=== PATIENT | male | born 1985 | race African-American/Black ===

== ENCOUNTER 2024-06-14 19:19 | Inpatient (IN) | payer BC ==
[~2024-06-14] VITALS: Ht 167.6 cm; Wt 56.7 kg
[2024-06-14] MEDS ORDERED: ONDANSETRON HCL/PF 4 MG/2 ML VIAL ONE (20:09)
[2024-06-14] MEDS: ONDANSETRON HCL/PF 4 MG/2 ML VIAL IVP ONE (20:16)
[2024-06-14] MEDS: IV NS 0.9% 500 ML BAG IV ONE (20:18)
[2024-06-14 20:26] LABS: BASOPHILS # (AUTO) 0.1 K/uL (0.0-0.2); BASOPHILS % (AUTO) 0.4 % (0.0-2.0); EOSINOPHILS % (AUTO) 0.1 % (0.0-6.0); HEMATOCRIT 49 % (39-51); HEMOGLOBIN 16.5 g/dL (13.5-17.5); LYMPHOCYTES % (AUTO) 9.3 % (20.0-44.0); MEAN CORPUSCULAR HEMOGLOBIN 30 PG (26.0-33.0); MEAN CORPUSCULAR HGB CONC 34 g/dl (31.0-36.0); MEAN CORPUSCULAR VOLUME 88 fL (80-96); MONOCYTES # (AUTO) 1.5 K/uL (0.1-1.30); MONOCYTES % (AUTO) 6.7 % (2.0-12.0); NEUTROPHILS # (AUTO) 18.5 K/uL (1.8-8.9); NEUTROPHILS % (AUTO) 83.5 % (43.0-81.0); PLATELET COUNT (AUTO) 289 K/uL (150-450); RED BLOOD CELL COUNT(AUTO) 5.56 MIL/uL (4.5-6.0); RED CELL DISTRIBUTION WIDTH 13.7 % (11.5-15.0); WHITE BLOOD COUNT (AUTO) 22.1 K/uL (4.3-11.0)
[2024-06-14 20:31] LABS: CALCIUM, SERUM 10.7 mg/dL (8.5-10.1); CREATININE 1.4 mg/dL (0.6-1.3); POTASSIUM 4.2 mmol/L (3.5-5.1)
[2024-06-14 20:37] LABS: ALBUMIN 4.8 g/dL (3.4-5.0); BILIRUBIN,DIRECT 0.2 mg/dL (0.0-0.2); BILIRUBIN,TOTAL 1.5 mg/dL (0.2-1.0); TOTAL PROTEIN, SERUM 8.7 g/dL (6.4-8.2)
[2024-06-14] MEDS ORDERED: MORPHINE SULFATE INJ 4 MG/ML DISP.SYRIN ONE ×2 (20:45→22:41)
[2024-06-14] MEDS: MORPHINE SULFATE INJ 2 MG/ML DISP.SYRIN IV ONE ×2 (20:48→22:44)
[2024-06-14] MEDS ORDERED: IOHEXOL-300 100 ML VIAL IV ONE (21:24)
[2024-06-14] MEDS ORDERED: IV NS 0.9% 250 ML IV ONE (21:25)
[2024-06-14 21:32] LABS: LACTIC ACID 3.5 mmol/L (0.4-2.0)
[2024-06-14] MEDS: IV NS 0.9% 1,000 ML BAG IV ONE (21:56)
[2024-06-14] MEDS ORDERED: PIPERACI/TAZO 3.375GM/D5W 50ML PB IV ONE (21:59)
[2024-06-14] MEDS: PIPERACILLIN /TAZOBACTAM 3.375 G in IV D5W 50 ML IV ONE (22:00)
[2024-06-14] MEDS ORDERED: diphenhydrAMINE HCL 50 MG/ML VIAL ONE (22:27)
[2024-06-14] MEDS ORDERED: METOCLOPRAMIDE HCL 10 MG/2 ML VIAL ONE (22:27)
[2024-06-14] MEDS: diphenhydrAMINE HCL 50 MG/ML VIAL IV ONE (22:30)
[2024-06-14] MEDS: METOCLOPRAMIDE HCL 10 MG/2 ML VIAL IV ONE (22:33)
[2024-06-14 22:44] LABS: MONOTEST NEGATIVE (NEGATIVE)
[2024-06-14] MEDS ORDERED: Z GUARD REMEDY 4 OZ OINT TP PRN (23:00)
[2024-06-14 23:06] LABS: APPEARANCE,URINE CLEAR (CLEAR); BILIRUBIN,URINE NEGATIVE (NEGATIVE); BLOOD, URINE NEGATIVE Ery/uL (NEGATIVE); COLOR,URINE YELLOW (YELLOW); KETONES,URINE 1+ mg/dL (NEGATIVE); LEUKOCYTE ESTERASE ,URINE NEGATIVE (NEGATIVE); NITRITE, URINE NEGATIVE (NEGATIVE); PROTEIN,URINE NEGATIVE (NEGATIVE); UGLUCOSE NEGATIVE (NEGATIVE); UROBILINOGEN,URINE 0.2 EU/dL (0.2)
[2024-06-14 23:13] LABS: ADD URINE CULTURE NO; BACTERIA,URINE Rare /HPF (None Seen); RBC,URINE 0-2 /HPF (0-2); SQUAMOUS EPITHELIAL CELL,UR Few /HPF (None Seen); WBC,URINE 0-2 /HPF (0-3)
[2024-06-14 23:15] VITALS: BP 149/100; TEMP 98.1; O2SAT 100
[2024-06-14] MEDS: IV NS 0.9% 1,000 ML IV PRN (23:40)
[2024-06-15 00:26] LABS: ANISOCYTOSIS 1+; BAND % (MANUAL) 2 % (0.0-5.0); BASOPHILS % (MANUAL) 0 % (0.0-2.0); EOSINOPHILS % (MANUAL) 0 % (0-4); LYMPHOCYTES % (MANUAL) 8 % (16-48); MONOCYTES % (MANUAL) 5 % (0-11.0); NEUTROPHILS % (MANUAL) 85 (42-76); PLATELET ESTIMATE ADEQUATE; STOMATOCYTES 1+
[2024-06-15] MEDS: MORPHINE SULFATE INJ 2 MG/ML DISP.SYRIN IV PRN (01:25)
[2024-06-15 01:39] VITALS: BP 149/100; TEMP 98.2; O2SAT 100
[2024-06-15] MEDS: ONDANSETRON HCL/PF 4 MG/2 ML VIAL IVP PRN (02:49)
[2024-06-15] MEDS: PIPERACI/TAZO 3.375GM/D5W 50ML PB IV ONE (03:08)
[2024-06-15] MEDS: PIPERACILLIN /TAZOBACTAM 3.375 G in IV D5W 50 ML IV ONE (03:08)
[2024-06-15 07:00] LABS: BASOPHILS % (AUTO) 0.1 % (0.0-2.0); HEMATOCRIT 41 % (39-51); HEMOGLOBIN 13.4 g/dL (13.5-17.5); LYMPHOCYTES # (AUTO) 2.1 K/uL (0.8-4.8); LYMPHOCYTES % (AUTO) 11.1 % (20.0-44.0); MEAN CORPUSCULAR HEMOGLOBIN 30 PG (26.0-33.0); MEAN CORPUSCULAR HGB CONC 33 g/dl (31.0-36.0); MEAN CORPUSCULAR VOLUME 90 fL (80-96); MONOCYTES # (AUTO) 0.8 K/uL (0.1-1.30); MONOCYTES % (AUTO) 4.4 % (2.0-12.0); NEUTROPHILS # (AUTO) 15.8 K/uL (1.8-8.9); NEUTROPHILS % (AUTO) 84.4 % (43.0-81.0); PLATELET COUNT (AUTO) 215 K/uL (150-450); RED BLOOD CELL COUNT(AUTO) 4.55 MIL/uL (4.5-6.0); RED CELL DISTRIBUTION WIDTH 13.8 % (11.5-15.0); WHITE BLOOD COUNT (AUTO) 18.7 K/uL (4.3-11.0)
[2024-06-15 07:59] LABS: ALBUMIN 3.5 g/dL (3.4-5.0); BILIRUBIN,DIRECT 0.2 mg/dL (0.0-0.2); BILIRUBIN,TOTAL 1.5 mg/dL (0.2-1.0); CALCIUM, SERUM 8.5 mg/dL (8.5-10.1); CREATININE 1.2 mg/dL (0.6-1.3); MAGNESIUM 1.9 mg/dL (1.8-2.4); PHOSPHORUS 4.6 mg/dL (2.5-4.9); POTASSIUM 4.1 mmol/L (3.5-5.1); TOTAL PROTEIN, SERUM 6.9 g/dL (6.4-8.2)
[2024-06-15 08:00] VITALS: BP 133/86; TEMP 98.8; O2SAT 99
[2024-06-15 08:02] LABS: THYROID STIMULATING HORMONE 0.37 uIU/mL (0.358-3.74)
[2024-06-15] MEDS: PANTOPRAZOLE 40 MG VIAL IV SCH (08:15)
[2024-06-15] MEDS: ZOSYN IVPB 3.375 G in IV D5W 50ml IV SCH (12:18)
[2024-06-15] MEDS: LORAZEPAM 1 MG TABLET PO PRN (14:12)
[2024-06-15 16:00] VITALS: BP 133/100; TEMP 99.9; O2SAT 100
[2024-06-15 20:00] VITALS: BP 150/87; TEMP 98.6; O2SAT 100
[2024-06-16 07:15] LABS: BASOPHILS % (AUTO) 0.1 % (0.0-2.0); HEMATOCRIT 37 % (39-51); HEMOGLOBIN 12.5 g/dL (13.5-17.5); LYMPHOCYTES % (AUTO) 15.9 % (20.0-44.0); MEAN CORPUSCULAR HEMOGLOBIN 29 PG (26.0-33.0); MEAN CORPUSCULAR HGB CONC 34 g/dl (31.0-36.0); MEAN CORPUSCULAR VOLUME 88 fL (80-96); MONOCYTES # (AUTO) 0.7 K/uL (0.1-1.30); MONOCYTES % (AUTO) 5.7 % (2.0-12.0); NEUTROPHILS # (AUTO) 9.8 K/uL (1.8-8.9); NEUTROPHILS % (AUTO) 78.3 % (43.0-81.0); PLATELET COUNT (AUTO) 203 K/uL (150-450); RED BLOOD CELL COUNT(AUTO) 4.27 MIL/uL (4.5-6.0); RED CELL DISTRIBUTION WIDTH 13.4 % (11.5-15.0); WHITE BLOOD COUNT (AUTO) 12.5 K/uL (4.3-11.0)
[2024-06-16 07:56] LABS: ALBUMIN 3.3 g/dL (3.4-5.0); BILIRUBIN,DIRECT 0.2 mg/dL (0.0-0.2); BILIRUBIN,TOTAL 1.8 mg/dL (0.2-1.0); TOTAL PROTEIN, SERUM 6.4 g/dL (6.4-8.2)
[2024-06-16 08:00] VITALS: BP 160/98; TEMP 98.8; O2SAT 99
[2024-06-16 08:05] LABS: MAGNESIUM 1.8 mg/dL (1.8-2.4); PHOSPHORUS 2.8 mg/dL (2.5-4.9); POTASSIUM 3.7 mmol/L (3.5-5.1)
[2024-06-16] MEDS: PANTOPRAZOLE 40 MG TABLET.DR PO SCH (08:40)
[2024-06-16 16:00] VITALS: BP_SYST 116; BP_SYST 155; BP_DIAS 102; BP_DIAS 85; TEMP 98.2; O2SAT 96; O2SAT 98
[2024-06-16 20:00] VITALS: BP_SYST 116; BP_SYST 166; BP_DIAS 93; TEMP 98.2; O2SAT 100
[2024-06-17 06:59] LABS: ALBUMIN 3.1 g/dL (3.4-5.0); BILIRUBIN,DIRECT 0.5 mg/dL (0.0-0.2); BILIRUBIN,TOTAL 2.4 mg/dL (0.2-1.0); TOTAL PROTEIN, SERUM 6.2 g/dL (6.4-8.2)
[2024-06-17 07:30] VITALS: BP 156/92; TEMP 98.1; O2SAT 98
[2024-06-17] MEDS ORDERED: AMOX-430 PO (12:15)
[2024-06-17 15:55] VITALS: BP 167/84; TEMP 98.4; O2SAT 100
[2024-06-17] MEDS ORDERED: hydrALAZINE HCL IV 20 MG VIAL IV PRN (16:30)
[2024-06-17 20:00] VITALS: BP 163/96; TEMP 99.1; O2SAT 99
[2024-06-18] MEDS: ZOLPIDEM TARTRATE 5 MG TABLET PO PRN (01:00)
[2024-06-18 07:03] LABS: ALBUMIN 3.6 g/dL (3.4-5.0); BILIRUBIN,DIRECT 0.5 mg/dL (0.0-0.2); BILIRUBIN,TOTAL 3.1 mg/dL (0.2-1.0)
[2024-06-18 07:30] VITALS: BP 161/97; TEMP 98.6; O2SAT 100
[2024-06-18] MEDS ORDERED: HYDR-3973 PO (09:40)
== END 2024-06-18 13:55 | disposition home or self-care (01) | DRG 872 ==
LOC: ER 19:30 → TELE 22:33 → MED 23:45
PROVIDERS: ADMIT Nurse Practitioner Family; ATTEND Internal Medicine
DX: A41.9 Sepsis, unspecified organism (principal); N17.9 Acute kidney failure, unspecified; E87.20 Acidosis, unspecified; K52.9 Noninfective gastroenteritis and colitis, unspecified; D64.9 Anemia, unspecified; E80.4 Gilbert syndrome; E86.9 Volume depletion, unspecified; M89.8X9 Other specified disorders of bone, unspecified site; E80.6 Other disorders of bilirubin metabolism
CPT/HCPCS: 36415; 74181-TC; 76700-TC; 80048-TC; 80076-TC; 81001; 83605-TC; 83690-TC; 83735-TC; 84100-TC; 84443-TC; 85025-TC; 86308-TC; 87040-TC; 87086-TC; A4223; A6253; G0378; J0360; J1200; J2270; J2405; J2470; J2543; J2765; J7030; J7050; J7060; Q9967